=== PATIENT | female | born 2000 ===

== ENCOUNTER 2022-05-09 10:10 | Inpatient (IN) | payer MEDICAID ==
[2022-05-09] MEDS ORDERED: LOPERAMIDE 2 MG CAP PO PRN (15:16)
[2022-05-09] MEDS ORDERED: MINERAL OIL 30 ML ORAL LIQD PO PRN (15:16)
[2022-05-09] MEDS ORDERED: TERBUTALINE 1 MG/1 ML INJ SUB-Q PRN (15:16)
[2022-05-09] MEDS ORDERED: CARBOPROST TROMETHAMINE 250 MCG/1 ML INJ IM PRN (15:16)
[2022-05-09] MEDS ORDERED: ePHEDrine SULFATE 50 MG/1 ML INJ IV PRN (15:16)
[2022-05-09] MEDS ORDERED: NALOXONE 0.4 MG/1 ML INJ IV PRN (15:16)
[2022-05-09] MEDS ORDERED: METHYLERGONOVINE MALEATE 0.2 MG/ML VIAL IM PRN (15:16)
[2022-05-09] MEDS ORDERED: OXYTOCIN 10 UNIT/1 ML INJ IM PRN (15:16)
[2022-05-09] MEDS ORDERED: BUTORPHANOL 2 MG/1 ML INJ IV PRN (15:16)
[2022-05-09] MEDS ORDERED: miSOPROStol 200 MCG TAB PR PRN (15:16)
[2022-05-09] MEDS ORDERED: LIDOCAINE (2%) 20 MG/1 ML VIAL 20 ML MDV INFILTRATI ONE (15:16)
[2022-05-09] MEDS ORDERED: ONDANSETRON 4 MG/2 ML INJ IV PRN (15:16)
--- NOTE | 2022-05-09 15:25 | History and Physical Report ---
History of Present Illness Date of examination: 05/09/22 Date of admission: 05/09/2022 Chief complaint: Labor Pains History of present illness: care at [facility], course complicated by Anemia, Hemoglobin S Disorder, and a UTI. Past History Past Medical History: no pertinent history Past Surgical History: no surgical history Family/Genetic History: heart disease (Mother), hypertension (Mother) Social history: no significant social history, single - Obstetrical History Expected Date of Delivery: 05/10/22 Actual Gestation: 39 Week(s) 6 Day(s) : 1 Medications and Allergies Allergies Allergy/AdvReac Type Severity Reaction Status Date / Time No Known Allergies Allergy Unverified 05/09/22 10:59 Active Meds: Active Medications Butorphanol Tartrate (Butorphanol 2 Mg/1 Ml Inj) 2 mg IV Q2H PRN PRN Reason: Pain , Severe (7-10) Carboprost Tromethamine (Carboprost Tromethamine 250 Mcg/1 Ml Inj) 250 mcg IM ONCE PRN PRN Reason: Uterine Bleeding Ephedrine Sulfate (Ephedrine Sulfate 50 Mg/1 Ml Inj) 10 mg IV Q2M PRN PRN Reason: Hypotension Lactated Ringer's (Lactated Ringers) 1,000 mls @ 125 mls/hr IV DIRECT JOEL Oxytocin/Sodium Chloride (Pitocin/Ns 30 Unit/500ml) 30 units in 500 mls @ 40 mls/hr IV TITR JOEL; Protocol Lidocaine (Lidocaine (2%) 20 Mg/1 Ml Vial 20 Ml Mdv) 20 ml INFILTRATI ONCE ONE Stop: 05/09/22 15:17 Loperamide HCl (Loperamide 2 Mg Cap) 2 mg PO ONCE PRN PRN Reason: give with Hemabate Methylergonovine Maleate (Methylergonovine Maleate 0.2 Mg/Ml Vial) 0.2 mg IM ONCE PRN PRN Reason: Uterine Bleeding Mineral Oil (Mineral Oil 30 Ml Oral Liqd) 30 ml PO QHS PRN PRN Reason: Constipation Misoprostol (Misoprostol 200 Mcg Tab) 800 mcg ND ONCE PRN PRN Reason: Uterine Bleeding Naloxone HCl (Naloxone 0.4 Mg/1 Ml Inj) 0.1 mg IV Q2MIN PRN PRN Reason: Res Rate </= 8 or 02 SAT < 92% Ondansetron HCl (Ondansetron 4 Mg/2 Ml Inj) 4 mg IV Q8H PRN PRN Reason: Nausea And Vomiting Oxytocin (Oxytocin 10 Unit/1 Ml Inj) 10 unit IM ONCE PRN PRN Reason: Uterine Bleeding Terbutaline Sulfate (Terbutaline 1 Mg/1 Ml Inj) 0.25 mg SUB-Q ONCE PRN PRN Reason: Hyperstimulation/Hypertonicity Review of Systems All systems: negative - Vital Signs Vital signs: Vital Signs Pulse Pulse Ox 86 0 L 05/09/22 11:10 05/09/22 11:10 Temp Pulse Resp BP Pulse Ox 98.6 F 81 18 118/74 98 05/09/22 11:16 05/09/22 12:27 05/09/22 11:16 05/09/22 11:13 05/09/22 12:27 - Physical Exam Breasts: Positive: normal Cardiovascular: Regular rate Lungs: Positive: Clear to auscultation, Normal air movement Abdomen: Positive: normal appearance, soft, normal bowel sounds Genitourinary (Female): Positive: normal external genitalia, normal perenium Vagina: Positive: normal moisture Uterus: Positive: enlarged Anus/Rectum: Positive: normal perianal skin - Obstetrical FHR: category 1 Uterine Contraction Monitor Mode: External Cervical Dilatation: 3 (Intact) Cervical Effacement Percentage: 90 station: -3 Uterine Contraction Pattern: Regular Uterine Tone Measurement Phase: Resting Uterine Contraction Intensity: Mild Results All other labs normal. Assessment and Plan A: IUP @ 39 6/7 Weeks Category I Tracing Early Labor GBS Negative P: Admit to L&D Per Routine Orders
[2022-05-09] MEDS ORDERED: OXYTOCIN DRIP 30 UNITS/500 ML BAG IV SCH (16:00)
[2022-05-09 18:15] LABS: Hematocrit 32.8 % (30.3-42.9); Hemoglobin 10.4 gm/dl (10.1-14.3); Mean Corpuscular HGB Conc 32 % (30-34); Mean Corpuscular Volume 70 fl (79-97); Platelet Count 184 K/mm3 (140-440); Red Blood Count 4.66 M/mm3 (3.65-5.03); Red Cell Distribution Width 16.7 % (13.2-15.2)
[2022-05-09] MEDS: LACTATED RINGERS 1,000 ML IV SCH (19:18)
--- NOTE | 2022-05-09 23:26 | Ultrasound Report ---
US OB follow up INDICATION / CLINICAL INFORMATION: Pain COMPARISON: None available. TECHNIQUE: Using a transcutaneous probe, multiple grayscale, color Doppler, and spectral Doppler imag es of the uterus and fetus were captured and stored. FINDINGS: Single cephalic fetus heart rate 141 bpm. Amniotic fluid index is decreased with CHARITO of 2.6 cm. Anterior grade 2 fundal placenta demonstrated. Biparietal Diameter = 9.0 cm = 36, 4 weeks, days Head Circumference = 33.5 cm = 38, 3 weeks, days Abdominal Circumference = 35.1 cm = 39, 0 weeks, days Femur Length = 7.7 cm = 39, 1 weeks, days Average Ultrasound Age (AUA) = 38, 2 weeks, days. EDC 05/21/2022. Clinical estimate of gestational age based on LMP of 08/03/2021 is 39 weeks 6 days. Estimated weight = 3548 g; growth percentile 46%.. IMPRESSION: 1. Single living fetus as detailed. 2. Oligohydramnios. Signer Name: Damien Reed II, MD Signed: 05/09/2022 11:21 PM Workstation Name: [id number]
[2022-05-09] MEDS ORDERED: OXYTOCIN DRIP 30,000 MILLIUNITS/500 ML BAG IV ONE (23:59)
[2022-05-10] MEDS ORDERED: ePHEDrine SULFATE 50 MG/1 ML INJ ONE (01:36)
[2022-05-10] MEDS: LACTATED RINGERS 1,000 ML IV SCH ×2 (02:02→10:42)
[2022-05-10] MEDS ORDERED: ePHEDrine SULFATE 50 MG/1 ML INJ IV PRN ×2 (02:03→08:30)
[2022-05-10] MEDS ORDERED: fentaNYL-BUPIV 2 MCG/ML-0.125% 200 MCG/100 ML BAG EPIDURAL SCH (02:03)
[2022-05-10] MEDS ORDERED: NALOXONE 0.4 MG/1 ML INJ IV PRN (02:03)
--- NOTE | 2022-05-10 02:05 | Anesthesia Day of Surgery ---
Anesthesia Day of Surgery - Day of Surgery Patient Examined: Yes Patient H&P Reviewed: Yes Patient is NPO: Yes Beta Blockers: No Cardiac Clearance: No Pulmonary Clearance: No Ángel's Test: N/A
--- NOTE | 2022-05-10 02:05 | Anesthesia Consultation ---
Anesthesia Consult and Med Hx Date of service: 05/10/22 - Airway Anesthetic Teeth Evaluation: Good ROM Head & Neck: Adequate Mental/Hyoid Distance: Adequate Mallampati Class: Class II Intubation Access Assessment: Probably Good - Pulmonary Exam CTA: Yes - Cardiac Exam Cardiac Exam: RRR - Pre-Operative Health Status ASA Pre-Surgery Classification: ASA2 Proposed Anesthetic Plan: Epidural - Pulmonary Hx Smoking: No Hx Asthma: Yes Hx Respiratory Symptoms: No SOB: No COPD: No Home Oxygen Therapy: No Hx Pneumonia: No Hx Sleep Apnea: No - Cardiovascular System Hx Hypertension: No Hx Coronary Artery Disease: No Hx Heart Attack/AMI: No Hx Angina: No Hx Percutaneous Transluminal Coronary Angioplasty (PTCA): No Hx Cardia Arrhythmia: No Hx Pacemaker: No Hx Internal Defibrillator: No Hx Valvular Heart Disease: No Hx Heart Murmur: No Hx Peripheral Vascular Disease: No - Central Nervous System Hx Neuromuscular Disorder: No Hx Seizures: No CVA: No Hx Back Pain: No Hx Psychiatric Problems: No - Gastrointestinal Hx Ulcer: No Hx Gastroesophageal Reflux Disease: No - Endocrine Hx Renal Disease: No Hx End Stage Renal Disease: No Hx Cirrhosis: No Hx Liver Disease: No Hx Insulin Dependent Diabetes: No Hx Non-Insulin Dependent Diabetes: No Hx Thyroid Disease: No Hx Hypothyroidism: No Hx Hyperthyroidism: No - Hematic Hx Anemia: Yes Hx Sickle Cell Disease: No - Other Systems Hx Alcohol Use: Yes Hx Substance Use: No Hx Cancer: No Hx Obesity: No
--- NOTE | 2022-05-10 02:06 | Progress Note ---
Labor Epidural - Labor Epidural Start Time: 01:45 Stop Time: 01:50 Performed by:: BILLY MENDOZA Procedure: Epidural Requested for Labor Pain. H&P and PT Chart reviewed and consent obtained. Time out performed and the procedure was explained, all questions answered. Patient was placed in a sitting position with monitors applied. The PTs back was prepped and draped in usual sterile fashion. The Skin was localized with 3 mL of 1% lidocaine at L3-L4. A 17-gauge Touhy epidural needle was advanced to TOSHA with saline at 7 cm and no blood/CSF was noted via epidural needle. Epidural catheter was advanced to 12 cm. There was negative aspiration for blood and CSF in the catheter and negative response to a test dose of 3 ml 1.5% lidocaine w/ Epi and a sterile dressing was applied Patient tolerated the procedure well and there were no immediate complications noted.
[2022-05-10] MEDS ORDERED: OXYTOCIN DRIP 30 UNITS/500 ML BAG IV SCH ×2 (08:00)
[2022-05-10] MEDS ORDERED: ACETAMINOPHEN 325 MG TAB PO PRN ×2 (08:30→12:06)
[2022-05-10] MEDS ORDERED: MINERAL OIL 30 ML ORAL LIQD PO PRN (08:30)
[2022-05-10] MEDS ORDERED: LOPERAMIDE 2 MG CAP PO PRN (08:30)
[2022-05-10] MEDS ORDERED: miSOPROStol 200 MCG TAB PR PRN (08:30)
[2022-05-10] MEDS ORDERED: OXYTOCIN 10 UNIT/1 ML INJ IM PRN (08:30)
[2022-05-10] MEDS ORDERED: LIDOCAINE (2%) 20 MG/1 ML VIAL 20 ML MDV INFILTRATI SCH (08:30)
[2022-05-10] MEDS ORDERED: fentaNYL 100 MCG/2 ML INJ IV PRN (08:30)
[2022-05-10] MEDS ORDERED: BUTORPHANOL 2 MG/1 ML INJ IV PRN (08:30)
--- NOTE | 2022-05-10 08:34 | Event Note ---
Date: 05/10/22 S: Feeling ok O: VE ant lip/C/-1, arom clear fluid, CAT I tracing, Pit at 8mu A: Active labor @ 40 weeks P: Expect
[2022-05-10] MEDS ORDERED: ERYTHROMYCIN 5 MG/1 GM OPHTH OINT ONE (11:58)
--- NOTE | 2022-05-10 12:05 | Procedure Note ---
OB Delivery Note - Delivery Date of Delivery: 05/10/22 Surgeon: ANGEL DAVIS ([place], [facility]) Estimated blood loss: other (250cc, Cytotec 800 ME) - Vaginal Delivery presentation: vertex Delivery position: OA Delivery induction: oxytocin Delivery augmentation: rupture of membranes Delivery monitor: external FHT, external uterine Route of delivery: Delivery placenta: spontaneous Delivery cord: 3 umbilical vessels Episiotomy: none Delivery laceration: other (bilateral labial) Anesthesia: local, epidural Delivery comments: of a viable male 7# 15oz @ 1132 over intact perineum. Placenta delivered 3VCI. Bilateral labial lacerations repaired with 3-0 vicryl. Apgars 8/9 QBL - A at 1 minute: 8 at 5 minutes: 9 Infant Gender: Male (7-15)
[2022-05-10] MEDS ORDERED: MAGNESIUM HYDROXIDE (MOM) ORAL LIQD UDC PO PRN (12:06)
[2022-05-10] MEDS ORDERED: diphenhydrAMINE 25 MG CAP PO PRN (12:06)
[2022-05-10] MEDS ORDERED: LANOLIN/ZINC/DIMETHICONE (LANSINOH) 7 GM TP PRN (12:06)
[2022-05-10] MEDS ORDERED: WITCH HAZEL/ GLYCERIN PAD TP PRN (12:06)
[2022-05-10] MEDS ORDERED: oxyCODONE /ACETAMINOPHEN 5-325MG TAB PO PRN (12:06)
[2022-05-10] MEDS: IBUPROFEN 800 MG TAB PO SCH (21:15)
[2022-05-11] MEDS: IBUPROFEN 800 MG TAB PO SCH ×2 (04:24→12:59)
[2022-05-11 08:26] LABS: Hematocrit 25.1 % (30.3-42.9); Hemoglobin 8.1 gm/dl (10.1-14.3)
--- NOTE | 2022-05-11 08:34 | Progress Note ---
Assessment and Plan A: PPD # 1 - stable P: Plan discharge home today Discharge instructions given Subjective - Subjective Date of service: 05/11/22 Principal diagnosis: PPD # 1 - stable Patient reports: appetite normal [place]: doing well Objective - Vital Signs Latest vital signs: Vital Signs Temp Pulse Resp BP BP Pulse Ox Pulse Ox 05/11/22 04:24 20 05/11/22 00:29 97.5 F L 87 18 107/62 99 05/10/22 21:15 18 05/10/22 20:14 98.0 F 93 H 20 121/75 98 05/10/22 19:25 97 05/10/22 16:00 99.4 F 102 H 18 110/63 97 05/10/22 13:45 97.8 F 90 14 122/78 96 05/10/22 12:57 88 98 05/10/22 12:52 97 H 98 05/10/22 12:50 104 H 116/63 05/10/22 12:47 113 H 97 05/10/22 12:44 65 94 05/10/22 12:42 84 100 05/10/22 12:37 97 H 98 05/10/22 12:35 106 H 144/65 05/10/22 12:32 89 99 05/10/22 12:27 111 H 98 05/10/22 12:22 109 H 99 05/10/22 12:19 100 H 123/69 05/10/22 12:17 100 H 100 05/10/22 12:12 92 H 98 05/10/22 12:07 87 100 05/10/22 12:05 98 H 124/68 05/10/22 12:02 91 H 100 05/10/22 11:57 105 H 100 05/10/22 11:52 114 H 100 05/10/22 11:47 109 H 100 05/10/22 11:42 133 H 100 05/10/22 11:39 120 H 104/58 05/10/22 11:37 117 H 100 05/10/22 11:32 159 H 100 05/10/22 11:27 132 H 100 05/10/22 11:22 132 H 100 05/10/22 11:17 122 H 100 05/10/22 11:12 145 H 93 05/10/22 11:10 157 H 151/75 05/10/22 11:07 106 H 100 05/10/22 11:02 129 H 100 05/10/22 10:57 147 H 100 05/10/22 10:52 138 H 100 05/10/22 10:47 134 H 100 05/10/22 10:42 127 H 100 05/10/22 10:37 121 H 100 05/10/22 10:32 128 H 99 05/10/22 10:27 117 H 100 05/10/22 10:22 120 H 99 05/10/22 10:21 118 H 86 05/10/22 10:17 110 H 98 05/10/22 10:12 114 H 92 05/10/22 10:10 137 H 119/66 05/10/22 10:09 116 H 94 05/10/22 10:07 111 H 86 05/10/22 10:02 113 H 99 05/10/22 09:57 128 H 100 05/10/22 09:52 131 H 98 05/10/22 09:47 123 H 97 05/10/22 09:42 113 H 99 05/10/22 09:39 133 H 112/73 91 05/10/22 09:37 100 H 100 05/10/22 09:32 99 H 99 05/10/22 09:27 99 H 100 05/10/22 09:22 111 H 100 05/10/22 09:17 117 H 98 05/10/22 09:12 112 H 98 05/10/22 09:10 102 H 117/70 05/10/22 09:07 98 H 94 05/10/22 09:02 98 H 99 05/10/22 08:57 94 H 100 05/10/22 08:52 98 H 100 05/10/22 08:47 105 H 100 05/10/22 08:42 111 H 100 05/10/22 08:41 96 H 116/66 05/10/22 08:37 101 H 100 Intake and Output 05/10/22 05/11/22 05/11/22 22:59 06:59 14:59 Intake Total 240 360 Output Total 700 Balance 240 -340 Intake: Oral 240 Intake, Free Water 360 Output: Urine 700 Void 700 Other: Total, Intake Amount 240 Total, Output Amount 700 # Voids Void 1 - Exam Breasts: Present: deferred Cardiovascular: Present: Regular rate Lungs: Present: Clear to auscultation Abdomen: Present: soft Vulva: both: normal Uterus: Present: fundal height below umbilicus Extremities: Present: normal Deep Tendon Reflex Grade: Normal +2 - Labs Labs: Abnormal lab results 05/11/22 Range/Units 07:49 Hgb 8.1 L (10.1-14.3) gm/dl Hct 25.1 L D (30.3-42.9) %
--- NOTE | 2022-05-11 08:36 | Discharge Summary ---
Providers - Providers Date of Admission: 05/10/22 07:53 Date of discharge: 05/11/22 Attending physician: USMAN CEDILLO MD Primary care physician: USMAN CEDILLO MD Hospitalization Reason for admission: active labor Delivery: Episiotomy: none Laceration: other (bilateral labial) Discharge diagnosis: IUP at term delivered [place] baby: male Hospital course: uneventful hospital course Condition at discharge: Good Disposition: 01 HOME / SELF CARE / HOMELESS Plan - Provider Discharge Summary Activity: routine, no sex for 6 weeks, no strenuous exercise Diet: routine Instructions: routine Additional instructions: [] Smoking cessation referral if applicable(refer to patient education folder for contact #) [] Refer to [facility]'s [facility] Booklet Call your doctor immediately for: * Fever > 100.5 * Heavy vaginal bleeding ( >1 pad per hour) * Severe persistent headache * Shortness of breath * Reddened, hot, painful area to leg or breast * Drainage or odor from incision. * Keep incision clean and dry at all times and follow doctor's instructions regarding bathing/showering - Follow up plan Follow up: USMAN CEDILLO MD [Primary Care Provider] - 6 Weeks
[2022-05-11 08:55] VITALS: BP 107/58
--- NOTE | 2022-05-11 16:01 | Post Anesthesia Evaluation ---
- Post Anesthesia Evaluation Patient Participated: Yes Airway Patent: Yes Stable Respiratory Function: Yes Nausea/Vomiting: No Temp > 96.8F: Yes Pain Manageable: Yes Adequeate Hydration: Yes Anesthesia Complications: No Block Receding Appropriately: Yes Patient on Ventilator: No
== END 2022-05-11 16:30 | disposition home or self-care (01) | DRG 775 ==
LOC: TRG 10:10 → LD 10:10 → APU 10:12 → TRG 05-10 07:53 → LD 05-10 07:53 → OB 05-10 14:08
PROVIDERS: ADMIT Obstetrics & Gynecology Gynecology; ATTEND Obstetrics & Gynecology Gynecology
PROC: 10E0XZZ Delivery of Products of Conception, External Approach (ICD-10-PCS; principal; 2022-05-10)
PROC: 3E0R3BZ Introduction of Anesthetic Agent into Spinal Canal, Percutaneous Approach (ICD-10-PCS; 2022-05-10)
PROC: 00HU33Z Insertion of Infusion Device into Spinal Canal, Percutaneous Approach (ICD-10-PCS; 2022-05-10)
PROC: 10907ZC Drainage of Amniotic Fluid, Therapeutic from Products of Conception, Via Natural or Artificial Opening (ICD-10-PCS; 2022-05-10)
PROC: 3E033VJ Introduction of Other Hormone into Peripheral Vein, Percutaneous Approach (ICD-10-PCS; 2022-05-10)
PROC: 0UQMXZZ Repair Vulva, External Approach (ICD-10-PCS; 2022-05-10)
DX: O99.52 Diseases of the respiratory system complicating childbirth (principal); Z3A.39 39 weeks gestation of pregnancy; J45.909 Unspecified asthma, uncomplicated; O70.0 First degree perineal laceration during delivery; Z37.0 Single live birth
CPT/HCPCS: 36415; 76816; 85014; 85018; 85027; 86850; 86900; 86901; G0378; J3490; J2590; J7120